=== PATIENT | male | born 1965 | race Caucasian/White ===

== ENCOUNTER 2017-01-01 14:50 | Inpatient (IN) | payer OTHER, MEDICAID ==
[~2017-01-01] VITALS: Ht 180.3 cm; Wt 136.5 kg
[~2017-01-01 14:50] MED LIST: DIVA500T7 PO; METO25TA6 PO; OLAN15TA3 PO; TRAZ50TA54 PO
[2017-01-01 15:04] VITALS: BP_SYST 153
[2017-01-01 15:39] LABS: BASOPHILS % (AUTO) 0.6 % (0.0-2.0); EOSINOPHILS # (AUTO) 0.2 K/uL (0.0-0.4); EOSINOPHILS % (AUTO) 3.7 % (0.0-4.0); HEMATOCRIT 36.3 % (36-54); LYMPHOCYTES # (AUTO) 2.5 K/uL (1.0-5.5); LYMPHOCYTES % (AUTO) 37.2 % (20.5-51.5); MEAN CORPUSCULAR HEMOGLOBIN 30 pg (27-31); MEAN CORPUSCULAR HGB CONC 33 % (32-36); MEAN CORPUSCULAR VOLUME 91 fL (79.0-98.0); MONOCYTES # (AUTO) 0.8 K/uL (0.0-1.0); MONOCYTES % (AUTO) 12.5 % (1.7-9.3); NEUTROPHILS # (AUTO) 3.1 K/uL (1.8-7.7); PLATELET COUNT (AUTO) 277 K/uL (130-430); RED CELL DISTRIBUTION WIDTH 13.2 % (9.0-15.0); WHITE BLOOD COUNT (AUTO) 6.6 K/uL (4.8-10.8)
[2017-01-01 16:00] LABS: CALCIUM 8.6 mg/dL (8.4-11.0); CREATININE 0.89 mg/dL (0.55-1.30); POTASSIUM 3.9 mmol/L (3.5-5.1)
[2017-01-01 16:09] LABS: ALBUMIN 3.5 g/dL (3.4-4.8); TOTAL BILIRUBIN 0.2 mg/dL (0.0-1.0)
[2017-01-01] MEDS ORDERED: ONDANSETRON HCL 4 MG/2 ML VIAL IVP ONE (16:30)
[2017-01-01] MEDS ORDERED: HYDROmorphone 1 MG INJ. 1 MG/ML AMPUL IVP ONE (16:30)
[2017-01-01] MEDS ORDERED: LOSA100T11 PO (18:23)
[2017-01-01 19:54] VITALS: BP_SYST 164
[2017-01-01 19:55] VITALS: BP_SYST 164
[2017-01-01] MEDS ORDERED: MORPHINE 2 MG/ML INJ. SYRINGE IVP PRN (20:45)
[2017-01-01] MEDS ORDERED: DIVALPROEX SODIUM 500 MG TABLET( DEPAKOTE) PO ONE (22:00)
[2017-01-01] MEDS: MORPHINE 4 MG/ML INJ. SYRINGE IVP PRN (23:17)
[2017-01-01 23:38] VITALS: BP_SYST 148
[2017-01-02 03:38] VITALS: BP_SYST 145
[2017-01-02] MEDS: MORPHINE 4 MG/ML INJ. SYRINGE IVP PRN ×4 (07:47→22:23)
[2017-01-02 08:00] VITALS: BP_SYST 155
[2017-01-02] MEDS: LOSARTAN POTASSIUM 50 MG TABLET (COZAAR) PO SCH (09:51)
[2017-01-02] MEDS: DIVALPROEX SODIUM 500 MG TABLET( DEPAKOTE) PO SCH ×2 (09:52→22:22)
[2017-01-02 12:00] VITALS: BP_SYST 159
[2017-01-02 18:00] VITALS: BP_SYST 146
[2017-01-02 20:13] VITALS: BP_SYST 133
[2017-01-02] MEDS ORDERED: traZODone HCL 50 MG TABLET (DESYREL) PO SCH (21:00)
[2017-01-02 23:41] VITALS: BP_SYST 118
[2017-01-03 03:59] VITALS: BP_SYST 139
[2017-01-03 08:00] VITALS: BP_SYST 149
[2017-01-03] MEDS: MORPHINE 4 MG/ML INJ. SYRINGE IVP PRN ×2 (10:47→15:58)
[2017-01-03] MEDS: LOSARTAN POTASSIUM 50 MG TABLET (COZAAR) PO SCH (10:53)
[2017-01-03] MEDS: DIVALPROEX SODIUM 500 MG TABLET( DEPAKOTE) PO SCH ×2 (10:53→21:20)
[2017-01-03 12:00] VITALS: BP_SYST 155
[2017-01-03 17:06] VITALS: BP_SYST 145
[2017-01-03] MEDS ORDERED: NA PHOS,M-B/NA PHOS,DI-BA 118 ML (FLEET ENEMA) RC ONE (17:45)
[2017-01-03 20:15] VITALS: BP_SYST 140
[2017-01-03 20:16] VITALS: BP_SYST 140
[2017-01-03] MEDS ORDERED: IBUPROFEN 800 MG TABLET PO PRN (20:45)
== END 2017-01-03 22:35 | disposition home or self-care (01) | DRG 312 ==
LOC: SED 14:50 → STU 19:23 → SMU 01-02 11:20
PROVIDERS: ADMIT Internal Medicine Hospice and Palliative Medicine; ATTEND Internal Medicine Hospice and Palliative Medicine
DX: R55 Syncope and collapse (principal); I10 Essential (primary) hypertension; E86.9 Volume depletion, unspecified; F40.240 Claustrophobia; M54.9 Dorsalgia, unspecified; M25.559 Pain in unspecified hip; G89.29 Other chronic pain; W18.39XA Other fall on same level, initial encounter; F31.9 Bipolar disorder, unspecified; Y99.8 Other external cause status; Y92.89 Other specified places as the place of occurrence of the external cause; Y93.89 Activity, other specified; Z82.49 Family history of ischemic heart disease and other diseases of the circulatory system; Z87.891 Personal history of nicotine dependence; Z90.49 Acquired absence of other specified parts of digestive tract; Z88.8 Allergy status to other drugs, medicaments and biological substances; Z79.899 Other long term (current) drug therapy
CPT/HCPCS: 36415; 71010; 72100-TC; 72170-TC; 72192-TC; 73502; 73564; 80053; 84484; 85025; 93005; 93306; 96374; 96375; 99285; J1170; J2270; J2405

== ENCOUNTER 2017-01-08 18:03 | Inpatient (IN) | payer OTHER, MEDICAID ==
[~2017-01-08] VITALS: Ht 180.3 cm; Wt 142.4 kg
[~2017-01-08 18:03] MED LIST changes: +LOSA100T11 PO; -METO25TA6 PO; -OLAN15TA3 PO
[2017-01-08 18:12] VITALS: BP_SYST 155
[2017-01-08] MEDS ORDERED: METO25TA6 PO (19:38)
[2017-01-08] MEDS ORDERED: ONDANSETRON 4 MG ODT TAB PO ONE (19:45)
[2017-01-08] MEDS ORDERED: MORPHINE SULFATE 10 MG/ML VIAL IM ONE (19:45)
[2017-01-08] MEDS ORDERED: ONDANSETRON HCL 4 MG/2 ML VIAL IVP PRN (20:00)
[2017-01-08 20:02] LABS: BASOPHILS % (AUTO) 0.3 % (0.0-2.0); EOSINOPHILS # (AUTO) 0.1 K/uL (0.0-0.4); EOSINOPHILS % (AUTO) 2.1 % (0.0-4.0); HEMATOCRIT 37.2 % (36-54); HEMOGLOBIN 12.6 g/dL (14.0-18.0); LYMPHOCYTES # (AUTO) 2.8 K/uL (1.0-5.5); LYMPHOCYTES % (AUTO) 39.1 % (20.5-51.5); MEAN CORPUSCULAR HEMOGLOBIN 31 pg (27-31); MEAN CORPUSCULAR HGB CONC 34 % (32-36); MEAN CORPUSCULAR VOLUME 91 fL (79.0-98.0); MONOCYTES # (AUTO) 0.6 K/uL (0.0-1.0); MONOCYTES % (AUTO) 8.2 % (1.7-9.3); NEUTROPHILS # (AUTO) 3.6 K/uL (1.8-7.7); NEUTROPHILS % (AUTO) 50.3 % (40.0-70.0); PLATELET COUNT (AUTO) 299 K/uL (130-430); RED BLOOD CELL COUNT(AUTO) 4.11 MIL/uL (4.2-6.2); RED CELL DISTRIBUTION WIDTH 13.5 % (9.0-15.0); WHITE BLOOD COUNT (AUTO) 7.1 K/uL (4.8-10.8)
[2017-01-08 20:06] LABS: ANION GAP 3 (5-15); CHLORIDE 107 mmol/L (98-107); CREATININE 0.95 mg/dL (0.55-1.30); GLUCOSE 91 mg/dL (70-99); SODIUM SERUM 137 mmol/L (136-145); UREA NITROGEN, BLOOD 21 mg/dL (8-21)
[2017-01-08 20:07] LABS: GFR AFRICAN AMERICAN 107 mL/min (>90)
[2017-01-08 20:09] LABS: INR 0.9 (0.80-1.20); PROTHROMBIN TIME 10.1 SECS (9.5-12.5)
[2017-01-08 20:11] LABS: ALANINE AMINOTRANSFERASE 20 U/L (12-78); ALBUMIN 3.2 g/dL (3.4-4.8); ASPARTATE AMINOTRANSFERASE < 5 U/L (10-37); TOTAL BILIRUBIN 0.3 mg/dL (0.0-1.0)
[2017-01-08 20:45] VITALS: BP_SYST 160
[2017-01-08] MEDS: traZODone HCL 50 MG TABLET (DESYREL) PO SCH (22:12)
[2017-01-08] MEDS: METOPROLOL TARTRATE 25 MG TABLET PO SCH (22:13)
[2017-01-08] MEDS: MORPHINE 2 MG/ML INJ. SYRINGE IVP PRN (22:22)
[2017-01-08] MEDS: DIVALPROEX SODIUM 500 MG TABLET( DEPAKOTE) PO SCH (22:42)
[2017-01-09] VITALS: BP_SYST 139
[2017-01-09] MEDS: MORPHINE 2 MG/ML INJ. SYRINGE IVP PRN ×5 (02:46→21:04)
[2017-01-09 03:33] VITALS: BP_SYST 121
[2017-01-09 08:00] VITALS: BP_SYST 145
[2017-01-09] MEDS: METOPROLOL TARTRATE 25 MG TABLET PO SCH ×2 (09:04→21:03)
[2017-01-09] MEDS: DIVALPROEX SODIUM 500 MG TABLET( DEPAKOTE) PO SCH ×2 (09:05→21:01)
[2017-01-09 12:19] VITALS: BP_SYST 118
[2017-01-09 15:26] VITALS: BP_SYST 148
[2017-01-09 20:20] VITALS: BP_SYST 151
[2017-01-09] MEDS: traZODone HCL 50 MG TABLET (DESYREL) PO SCH (21:01)
[2017-01-10] VITALS (7 sets, daily range): BP systolic 146–171
[2017-01-10] MEDS: MORPHINE 2 MG/ML INJ. SYRINGE IVP PRN ×2 (06:20→13:05)
[2017-01-10] MEDS: METOPROLOL TARTRATE 25 MG TABLET PO SCH (08:35)
[2017-01-10] MEDS: DIVALPROEX SODIUM 500 MG TABLET( DEPAKOTE) PO SCH (08:35)
[2017-01-10] MEDS ORDERED: HYDR-1189 PO ×2 (17:13→17:14)
[2017-01-10] MEDS ORDERED: IBUP-1480 PO (17:15)
== END 2017-01-10 17:46 | disposition home or self-care (01) | DRG 558 ==
LOC: SED 18:03 → SMU 19:59
PROVIDERS: ADMIT Family Medicine; ATTEND Family Medicine
DX: M70.72 Other bursitis of hip, left hip (principal); Z68.41 Body mass index [BMI] 40.0-44.9, adult; I10 Essential (primary) hypertension; M16.12 Unilateral primary osteoarthritis, left hip; F40.240 Claustrophobia; F99 Mental disorder, not otherwise specified; E66.9 Obesity, unspecified; F31.9 Bipolar disorder, unspecified; F51.04 Psychophysiologic insomnia; W11.XXXA Fall on and from ladder, initial encounter; Y93.89 Activity, other specified; Y92.098 Other place in other non-institutional residence as the place of occurrence of the external cause; Y99.8 Other external cause status; Z88.8 Allergy status to other drugs, medicaments and biological substances
CPT/HCPCS: 36415; 71010; 72192-TC; 80053; 85025; 85610-TC; 85730-TC; 87081; 93005; 96372; 99285; J2270; Q0162

== ENCOUNTER 2018-04-22 18:53 | Emergency (ER) | payer OTHER, MEDICAID ==
[~2018-04-22] VITALS: Ht 182.9 cm; Wt 126.1 kg
[~2018-04-22 18:53] MED LIST changes: +HYDR-1189 PO; +IBUP-1971 PO; -LOSA100T11 PO; +METO25TA6 PO
[2018-04-22 19:06] VITALS: BP_SYST 133
[2018-04-22] MEDS ORDERED: NACL 0.9% 1,000 ML IV ONE (19:45)
[2018-04-22] MEDS ORDERED: DIPHENHYDRAMINE INJ 50 MG/ML VIAL IVP ONE (19:45)
[2018-04-22] MEDS ORDERED: MORPHINE 4 MG/ML INJ. SYRINGE IVP ONE (19:45)
[2018-04-22 20:25] LABS: CALCIUM 8.3 mg/dL (8.4-11.0); CREATININE 0.92 mg/dL (0.55-1.30); POTASSIUM 3.7 mmol/L (3.5-5.1)
[2018-04-22 20:27] LABS: BASOPHILS % (AUTO) 0.2 % (0.0-2.0); EOSINOPHILS # (AUTO) 0.1 K/uL (0.0-0.4); EOSINOPHILS % (AUTO) 1.4 % (0.0-4.0); HEMATOCRIT 36.3 % (36-54); HEMOGLOBIN 12.4 g/dL (14.0-18.0); LYMPHOCYTES # (AUTO) 2.5 K/uL (1.0-5.5); LYMPHOCYTES % (AUTO) 41.7 % (20.5-51.5); MEAN CORPUSCULAR HEMOGLOBIN 31 pg (27-31); MEAN CORPUSCULAR HGB CONC 34 % (32-36); MEAN CORPUSCULAR VOLUME 90 fL (79.0-98.0); MONOCYTES # (AUTO) 0.5 K/uL (0.0-1.0); MONOCYTES % (AUTO) 7.6 % (1.7-9.3); NEUTROPHILS % (AUTO) 49.1 % (40.0-70.0); PLATELET COUNT (AUTO) 298 K/uL (130-430); RED BLOOD CELL COUNT(AUTO) 4.02 MIL/uL (4.2-6.2); RED CELL DISTRIBUTION WIDTH 13.7 % (9.0-15.0); WHITE BLOOD COUNT (AUTO) 6.1 K/uL (4.8-10.8)
[2018-04-22 20:31] LABS: ALBUMIN 3.4 g/dL (3.4-4.8); TOTAL BILIRUBIN 0.4 mg/dL (0.0-1.0)
[2018-04-22 20:50] LABS: BILIRUBIN,URINE NEGATIVE (NEGATIVE); CLARITY/URINE CLEAR (CLEAR); COLOR,URINE YELLOW (YELLOW); GLUCOSE,URINE NEGATIVE (NEGATIVE); KETONES,URINE 1+ (NEGATIVE); LEUKOCYTE ESTERASE ,URINE NEGATIVE (NEGATIVE); NITRITE, URINE NEGATIVE (NEGATIVE); PROTEIN URINE NEGATIVE (NEGATIVE); UROBILINOGEN,URINE 0.2 (0.2-1.0)
[2018-04-22 21:02] LABS: BLOOD, URINE TRACE (NEGATIVE)
[2018-04-22 21:12] LABS: BACTERIA,URINE FEW /HPF (None Seen); MUCUS,URINE 1+ /LPF (None Seen); RBC,URINE 0-3 /HPF (0-3); WBC,URINE 0-3 /HPF (0-3)
[2018-04-22 21:22] VITALS: BP_SYST 163
[2018-04-24 21:14] LABS: CHLAMYDIA TRACHOMATIS NAA Negative (Negative); NEISSERIA GONORRHOEAE NAA Negative (Negative)
== END 2018-04-22 21:22 | disposition home or self-care (01) ==
LOC: SED 18:53
DX: R10.84 Generalized abdominal pain (principal); I10 Essential (primary) hypertension; Z86.79 Personal history of other diseases of the circulatory system; Z90.49 Acquired absence of other specified parts of digestive tract; Z91.041 Radiographic dye allergy status; Z88.8 Allergy status to other drugs, medicaments and biological substances; Z79.899 Other long term (current) drug therapy
CPT/HCPCS: 36415; 74176; 80053; 81000; 83690; 84484; 85025; 87491; 87591; 93005; 96374; 96375; 99284; J1200; J2270; J7030

== ENCOUNTER 2019-04-13 20:58 | Emergency (ER) | payer OTHER, MEDICAID ==
[~2019-04-13] VITALS: Ht 180.3 cm; Wt 129.3 kg
[~2019-04-13 20:58] MED LIST changes: +DIVA-74 PO; -DIVA500T7 PO
[2019-04-13 21:00] VITALS: BP_SYST 146
--- NOTE | 2019-04-13 21:00 | NUR ---
Placed in room 8 . Placed on cardiac monitor technician, blood pressure machine and pulse oximeter. To gown for exam. Side rails up. Report given to Jaky CERNA.
--- NOTE | 2019-04-13 21:10 | NUR ---
Patient complains of left sided chest pain that started at 3pm while driving. Per patient pain was a stabbing sensation then would stop. Throughout the day, he would have pain to the left chest and would increase with ambulatation. Pt denies SOB, vomiting but complains of nausea. Pt reported that he had a recent coronary angiogram and was informed he did not need stents. No other injuries/complaints per patient or noted.
[2019-04-13] MEDS ORDERED: ASPIRIN 81 MG TAB.CHEW PO ONE (21:15)
--- NOTE | 2019-04-13 21:22 | NUR ---
ER Dr. Cobb at bedside examining patient.
[2019-04-13 21:30] LABS: BASOPHILS % (AUTO) 0.5 % (0.0-2.0); EOSINOPHILS # (AUTO) 0.1 K/uL (0.0-0.4); EOSINOPHILS % (AUTO) 1.5 % (0.0-4.0); HEMATOCRIT 39.6 % (36-54); HEMOGLOBIN 13.5 g/dL (14.0-18.0); LYMPHOCYTES # (AUTO) 2.3 K/uL (1.0-5.5); LYMPHOCYTES % (AUTO) 31.9 % (20.5-51.5); MEAN CORPUSCULAR HEMOGLOBIN 31 pg (27-31); MEAN CORPUSCULAR HGB CONC 34 % (32-36); MEAN CORPUSCULAR VOLUME 91 fL (79.0-98.0); MONOCYTES # (AUTO) 0.6 K/uL (0.0-1.0); MONOCYTES % (AUTO) 7.6 % (1.7-9.3); NEUTROPHILS # (AUTO) 4.3 K/uL (1.8-7.7); NEUTROPHILS % (AUTO) 58.5 % (40.0-70.0); PLATELET COUNT (AUTO) 317 K/uL (130-430); RED BLOOD CELL COUNT(AUTO) 4.37 MIL/uL (4.2-6.2); RED CELL DISTRIBUTION WIDTH 13.2 % (9.0-15.0); WHITE BLOOD COUNT (AUTO) 7.4 K/uL (4.8-10.8)
[2019-04-13 21:41] LABS: CALCIUM 8.5 mg/dL (8.4-11.0); CREATININE 0.94 mg/dL (0.55-1.30); POTASSIUM 3.5 mmol/L (3.5-5.1)
[2019-04-13 21:46] LABS: PROTHROMBIN TIME 9.9 SECS (9.5-12.5)
[2019-04-13 21:48] LABS: ALBUMIN 3.5 g/dL (3.4-4.8); TOTAL BILIRUBIN 0.3 mg/dL (0.0-1.0)
--- NOTE | 2019-04-13 21:50 | NUR ---
Patient complains of chest pain 02/13. Dr. Cobb made aware.
--- NOTE | 2019-04-13 21:54 | NUR ---
Verbal order received from Dr. Cobb to administer Nitroglycerin 0.4mg sublingual for chest pain. Patient tolerated well.
--- NOTE | 2019-04-13 21:59 | NUR ---
Patient stated pain was not relieved and refused 2nd nitroglycerin. Dr. Cobb made aware.
[2019-04-13] MEDS ORDERED: ONDANSETRON HCL 4 MG/2 ML VIAL IVP ONE (22:00)
[2019-04-13] MEDS ORDERED: MORPHINE 4 MG/ML INJ. SYRINGE IVP ONE (22:00)
[2019-04-13] MEDS ORDERED: NITROGLYCERIN 0.4 MG TAB.SUBL SL ONE (22:02)
[2019-04-13 22:03] LABS: BILIRUBIN,URINE NEGATIVE (NEGATIVE); BLOOD, URINE 1+ (NEGATIVE); CLARITY/URINE CLEAR (CLEAR); COLOR,URINE YELLOW (YELLOW); GLUCOSE,URINE NEGATIVE (NEGATIVE); KETONES,URINE NEGATIVE (NEGATIVE); LEUKOCYTE ESTERASE ,URINE NEGATIVE (NEGATIVE); NITRITE, URINE NEGATIVE (NEGATIVE); PROTEIN URINE NEGATIVE (NEGATIVE); UROBILINOGEN,URINE 0.2 (0.2-1.0)
[2019-04-13] MEDS ORDERED: HYDR25TA4 PO (22:07)
[2019-04-13] MEDS ORDERED: LISI-600 PO (22:07)
[2019-04-13] MEDS ORDERED: ASA81 PO (22:07)
[2019-04-13 22:10] LABS: BACTERIA,URINE RARE /HPF (None Seen); MUCUS,URINE None Seen /LPF (None Seen); RBC,URINE 0-3 /HPF (0-3); WBC,URINE 0-3 /HPF (0-3)
[2019-04-13 22:15] LABS: BARBITURATE, URINE NEGATIVE (NEG <=200); BENZODIAZEPINE, URINE NEGATIVE (NEG <=150); CANNABINOID, URINE NEGATIVE (NEG <=50); COCAINE, URINE NEGATIVE (NEG <=150); METHAMPHETAMINES SCREEN,URINE NEGATIVE (NEG <=500); OPIATE, URINE NEGATIVE (NEG <=100); PHENCYCLIDINE SCREEN,URINE NEGATIVE (NEG <=25); UR TRICYCLIC ANTIDEPRESSANTS NEGATIVE (NEG <=300); URINE AMPHETAMINE NEGATIVE (NEG <=500); URINE METHADONE NEGATIVE (NEG <=200); URINE OXYCODONE SCREEN NEGATIVE (NEG <=100); URINE PROPOXYPHENE SCREEN NEGATIVE (NEG <=300)
--- NOTE | 2019-04-13 22:15 | NUR ---
Medications were given, pt tolerated well. No adverse reaction, will continue to monitor.
--- NOTE | 2019-04-13 23:19 | NUR ---
Patient will be admitted to care of DR. Minor. Admitted to Telemetry unit. Will go to room 109 C. Belongings list completed. Complete and up to date summary report printed. SBAR report to be given at bedside with opportunity for questions.
--- NOTE | 2019-04-13 23:20 | NUR ---
Transfer to Telemetry via ACLS protocol. Licensed nurse present. IV present no signs or symptoms of infiltration.
--- NOTE | 2019-04-13 23:25 | NUR ---
ADMISSION: The patient, MIGUEL REYES, 54 y/o, M admitted by BRETT DIXON MD,TO ROOM 109 C, WITH THE DIAGNOSIS CHEST PAIN . PT IS ALERT AND ORIENTED .
[2019-04-13] MEDS ORDERED: TEMAZEPAM 15 MG CAPSULE PO PRN (23:45)
[2019-04-13] MEDS ORDERED: cloNIDine HCL 0.1 MG TABLET PO PRN (23:45)
--- NOTE | 2019-04-14 00:10 | NUR ---
Admitted this 54 year old male client from ER. with the chief complain of chest pain and short of breath. Pt. placed to room 109 bed C. Pt. alert, awake, oriented x 4, in Room Air with 02 sat. of 96 %. No s/s of sob or dyspnea @ this time. Breathing regular and unlabored @ this time. Chest expansion symmetrical. V/S taken and recorded. Noted to have strong dry, non-productive cough @ times. Denies chest pain upon admitting to the floor. Pt. on Tele-monitoring, NSR @ the monitor @ 75 per minute @ the monitor. Pt. is coherent and able to respond well to simple health questions. Bowel sounds normal, positive to all quadrants. Pt. abdomen soft and non-distended and last BM yesterday 04/13/2019. Pt. able to use urinal provided and voided clear, yellow urine. Generally skin intact. Ambulatory and independent with the activities of daily living. Assessment done and completed. Changed pt.'s gown to new gown and keep pt. clean, dry and messaging architect bed.
--- NOTE | 2019-04-14 00:30 | NUR ---
Oriented pt. to room, unit, bed controls, TV and use of call-light @ the bedside. Pt. oriented also about the " NO smoking policy" and the "visiting policy". Gathered data from the pt. and completed admission data and requirements. Pt. provided assistance @ the bedside. Keep pt. safe and endocrinologist bed.
[2019-04-14 00:31] VITALS: BP_SYST 142
--- NOTE | 2019-04-14 01:00 | NUR ---
Pt. expressed about going home as pt. verbalized that he just accepted a job offer from his friend to be started tomorrow and he doesnt want to miss that opportunity. Pt. verbalized also that his son needed him by tomorrow. Pt.'s Iphone is low ollie. and he wants to borrow Radio Interference Supervisor so he can call and talk to his new employer but unfortunately no Radio Interference Supervisor from Nurses[employer] match the pt.'s iphone. RN tried to lend him the Radio Interference Supervisor but it doesnt fit his Iphone. Pt. was encouraged and was given health teachings about staying in the hospital because its not safe for him to go home when the Doctor ordered for him to be admitted for his acute condition. Pt. insisting to go home no matter how he was given explanation of staying and the importance of being monitored. Pt. admission requirements completed.
[2019-04-14 01:30] VITALS: BP_SYST 142
--- NOTE | 2019-04-14 02:00 | NUR ---
Pt. signed the AMA form @ around 0200 AM despite given him explanation to stay for his safety and to complete his laboratory test to be sure his safe to go home. Pt. insisted on going home due to his new job offer tomorrow by his new employer. AMA signed by pt. @ 0200 Am.
--- NOTE | 2019-04-14 02:10 | NUR ---
Pt. Telemetry box and PIV access @ the LFA removed. Pt. prepared to go home.
--- NOTE | 2019-04-14 02:20 | NUR ---
Pt. went home AMA by 0220 Am.
[2019-04-14] MEDS ORDERED: LISINOPRIL 20 MG TABLET PO SCH (09:00)
[2019-04-14] MEDS ORDERED: HYDROCHLOROTHIAZIDE 25 MG TABLET (HCTZ) PO SCH (09:00)
[2019-04-14] MEDS ORDERED: DIVALPROEX SODIUM 500 MG TABLET( DEPAKOTE) PO SCH (09:00)
[2019-04-14] MEDS ORDERED: ASPIRIN 81 MG TAB.CHEW PO SCH (09:00)
[2019-04-14] MEDS ORDERED: traZODone HCL 50 MG TABLET (DESYREL) PO SCH (21:00)
== END 2019-04-13 23:20 | disposition other institution (70) ==
LOC: SED 20:58 → STU 22:51 → UNDOADMIN 22:51 → STU 23:20 → UNDODISIN 04-14 02:20
DX: R07.89 Other chest pain (principal); M54.5 Low back pain; I10 Essential (primary) hypertension; N28.1 Cyst of kidney, acquired; R56.9 Unspecified convulsions; Z79.82 Long term (current) use of aspirin; Z79.899 Other long term (current) drug therapy; Z88.8 Allergy status to other drugs, medicaments and biological substances; Z86.79 Personal history of other diseases of the circulatory system
CPT/HCPCS: 36415; 71045; 80053; 80307; 81000; 82550; 83880; 84484; 85025; 85379; 85610; 85730; 93005; 96374; 96375; 99285; J2270; J2405; G0378

== ENCOUNTER 2019-05-27 22:02 | Emergency (ER) | payer OTHER, MEDICAID ==
[~2019-05-27] VITALS: Ht 182.9 cm; Wt 120.2 kg
[~2019-05-27 22:02] MED LIST changes: +ASA81 PO; -HYDR-1189 PO; +HYDR25TA4 PO; -IBUP-1971 PO; +LISI-600 PO; -METO25TA6 PO
[2019-05-27 22:05] VITALS: BP_SYST 173
--- NOTE | 2019-05-27 22:08 | NUR ---
EKG done at bedside and given to Dr. Gibbs
--- NOTE | 2019-05-27 22:15 | NUR ---
Placed in room 7 . Placed on gambling monitor, blood pressure machine and pulse oximeter. To gown for exam. Side rails up. Report given to NEHEMIAH Grider.
--- NOTE | 2019-05-27 22:15 | NUR ---
Note undone in EDM - 05/27/19 at 2217 by [email or web address] Patient triaged and placed in waiting room. VSS and patient appears in no acute distress at this time. Accompanied by self, awaiting available bed, and MD notified of need for MSE.
--- NOTE | 2019-05-27 22:40 | NUR ---
ER Dr. Gibbs at bedside examining patient.
[2019-05-27] MEDS ORDERED: BACITRACIN 1 GM OINT TP ONE (23:00)
[2019-05-27] MEDS ORDERED: KETOROLAC TROMETHAMINE 60 MG/2 ML VIAL IM ONE (23:00)
[2019-05-27] MEDS ORDERED: DIPH-TET-PERTUS Vaccine 0.5 ML VIAL (ADACEL) I.M. ONE (23:00)
--- NOTE | 2019-05-27 23:00 | NUR ---
Pt came to the ED for spider bite to L forearm around 1700 today. 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 States he had a coronary angiogram 4 weeks ago. Denies n/v/d or fever. No other complaints/injuries noted. Will cont. to monitor.
[2019-05-27 23:28] LABS: BARBITURATE, URINE NEGATIVE (NEG <=200); BENZODIAZEPINE, URINE NEGATIVE (NEG <=150); CANNABINOID, URINE NEGATIVE (NEG <=50); COCAINE, URINE NEGATIVE (NEG <=150); METHAMPHETAMINES SCREEN,URINE NEGATIVE (NEG <=500); OPIATE, URINE NEGATIVE (NEG <=100); PHENCYCLIDINE SCREEN,URINE NEGATIVE (NEG <=25); UR TRICYCLIC ANTIDEPRESSANTS NEGATIVE (NEG <=300); URINE AMPHETAMINE NEGATIVE (NEG <=500); URINE METHADONE NEGATIVE (NEG <=200); URINE OXYCODONE SCREEN NEGATIVE (NEG <=100); URINE PROPOXYPHENE SCREEN NEGATIVE (NEG <=300)
[2019-05-27 23:57] VITALS: BP_SYST 160
--- NOTE | 2019-05-27 23:57 | NUR ---
Patient given written and verbal discharge instructions and verbalizes understanding. ER MD Dr. Gibbs discussed with patient the results and treatment provided. Patient in stable condition. ID arm band removed. Rx of tylenol with codeine given. Patient educated on pain management and to follow up with PMD. Pain Scale 0/10. Opportunity for questions provided and answered. Medication side effect fact sheet provided.
== END 2019-05-27 23:57 | disposition home or self-care (01) ==
LOC: SED 22:02
DX: T63.311A Toxic effect of venom of black widow spider, accidental (unintentional), initial encounter (principal); I10 Essential (primary) hypertension; Z88.8 Allergy status to other drugs, medicaments and biological substances; Z79.82 Long term (current) use of aspirin; Z79.899 Other long term (current) drug therapy; Z90.49 Acquired absence of other specified parts of digestive tract; Y92.89 Other specified places as the place of occurrence of the external cause
CPT/HCPCS: 80307; 90471; 90715; 96372; 99284; J1885